=== PATIENT | female | born 1995 | race Caucasian/White ===

== ENCOUNTER 2022-03-12 13:21 | Outpatient (CLI) | payer BC, SELFPAY | END 2022-03-12 13:22 | disposition home or self-care (01) | LOC: LKVREF 03-16 10:01 | PROVIDERS: Visit Provider Nurse Practitioner Family | DX: R30.0 Dysuria (principal) | CPT/HCPCS: 87086; 87186 ==

== ENCOUNTER 2022-04-04 09:54 | Outpatient (CLI) | payer BC, SELFPAY ==
[2022-04-04 15:30] LABS: Chlamydia DNA Amplified* NOT DETECTED (No Detected); GC DNA Amplified* NOT DETECTED (No Detected)
== END 2022-04-04 09:55 | disposition home or self-care (01) ==
LOC: NFLDREF 09:54
PROVIDERS: Visit Provider Registered Nurse
DX: Z01.419 Encounter for gynecological examination (general) (routine) without abnormal findings (principal); Z11.3 Encounter for screening for infections with a predominantly sexual mode of transmission
CPT/HCPCS: 87491; 87591

== ENCOUNTER 2022-09-13 08:18 | Outpatient (CLI) | payer BC, SELFPAY ==
[2022-09-13 20:37] LABS: Chlamydia DNA Amplified* NOT DETECTED (No Detected); GC DNA Amplified* NOT DETECTED (No Detected)
== END 2022-09-13 08:19 | disposition home or self-care (01) ==
PROVIDERS: PCP Registered Nurse; Visit Provider Registered Nurse
DX: N93.0 Postcoital and contact bleeding (principal); R10.2 Pelvic and perineal pain; Z11.3 Encounter for screening for infections with a predominantly sexual mode of transmission
CPT/HCPCS: 84443; 86592; 86703; 86803; 87086; 87340; 87491; 87591

== ENCOUNTER 2023-07-25 14:50 | Outpatient (CLI) | payer BC, SELFPAY ==
[2023-07-25 23:55] LABS: Chlamydia DNA Amplified* NOT DETECTED (No Detected); GC DNA Amplified* NOT DETECTED (No Detected)
== END 2023-07-25 14:51 | disposition home or self-care (01) ==
PROVIDERS: PCP Registered Nurse; Visit Provider Registered Nurse
DX: Z11.3 Encounter for screening for infections with a predominantly sexual mode of transmission (principal)
CPT/HCPCS: 86592; 86703; 86803; 87340; 87491; 87591

== ENCOUNTER 2024-09-17 14:23 | Outpatient (CLI) | payer BC, SELFPAY | END 2024-09-17 14:24 | disposition home or self-care (01) | PROVIDERS: Visit Provider Registered Nurse | DX: Z11.3 Encounter for screening for infections with a predominantly sexual mode of transmission (principal); Z11.59 Encounter for screening for other viral diseases; Z11.4 Encounter for screening for human immunodeficiency virus [HIV] | CPT/HCPCS: 86592; 86703; 86803; 87340; 87491; 87591 ==

== ENCOUNTER 2025-03-08 14:10 | Outpatient (CLI) | payer BC, SELFPAY | END 2025-03-08 14:11 | disposition home or self-care (01) | LOC: NFLDREF 03-10 19:01 | PROVIDERS: Visit Provider Physician Assistant | DX: N76.0 Acute vaginitis (principal); N39.0 Urinary tract infection, site not specified; R30.0 Dysuria | CPT/HCPCS: 87086; 87491; 87591 ==